=== PATIENT | male | born 1940 | race Caucasian/White ===

== ENCOUNTER 2020-07-12 08:26 | Outpatient (CLI) | payer MEDICARE, SELFPAY ==
--- NOTE | ~2020-07-12 | CT_ITS ---
EXAMINATION: CT abdomen pelvis w con EXAM DATE: 07/12/2020 09:00 INDICATION: Prostate cancer. TECHNIQUE: Spiral CT of the abdomen and pelvis was performed following intravenous injection of 100 m L Omnipaque 350. Axial, coronal and sagittal images of the abdomen and pelvis were reviewed. The do se-length product (DLP) for this examination was 592.75 mGy-cm. The exposure was tailored according to patient size (auto mA exposure control), and iterative reconstruction (ASIR) was used as additiona l dose reduction technique. Comparison is made to prior examination from 01/20/2018. FINDINGS: There is a pancreatic tail cystic mass measuring 2 cm, may have small septations, microcyst ic morphology. The differential diagnosis includes pseudocyst, intraductal papillary mucinous neoplas m (IPMN), mucinous cystic neoplasm (MCN), and the less common serous cystadenoma and neuroendocrine t umor. Correlate for history of pancreatitis. Difficult to specifically confirm this on prior study d ue to lack of contrast, but probably either stable or decreased in size compared to that examination, 1.5 years stability. Follow-up CT abdomen with contrast recommended in 6-12 months. The liver, spleen, adrenal glands are unremarkable. There are cholecystectomy clips. Portal and spl enic veins are patent. Kidneys enhance symmetrically. There is no hydronephrosis. Punctate left nep hrolithiasis. Small regions of right renal cortical scarring. There is severe prostatomegaly, measur ing over 7 cm in diameter. Some diffuse bladder wall thickening, could indicate chronic cystitis. Ac pia cystitis not excludable. There is no retroperitoneal or pelvic lymphadenopathy. The appendix is not positively visualized. There is no pericecal inflammatory change to suggest appe ndicitis. There is moderate sigmoid colonic diverticulosis. There is no adjacent inflammatory change to suggest diverticulitis. There is small sliding gastroesophageal hiatal hernia. There is expecte d amount of colonic stool. No free intraperitoneal gas. The heart is normal in size. There are n o pericardial or pleural effusions. The lung bases are unremarkable. There are 2 focal lucent intramedullary regions in the right iliac bone at the level of the acetabulu m, measuring about 2 cm each, without cortical destruction. 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 Prostate cancer would be expected to produce osteoblastic metastatic disease. These can be reevaluated on a 6 month follow-up CT. IMPRESSION: 1. Incidental pancreatic cystic lesion likely demonstrating 1.5 years stability. Follow-up CT abdome n with contrast in 6-12 months. 2. Severe prostatomegaly. No lymphadenopathy. 3. 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 Patient has bone scan also being performed today. 4. Punctate left nephrolithiasis. 5. Moderate sigmoid diverticulosis. Reviewed, dictated and finalized at location A. IMPRESSION: 1. Incidental pancreatic cystic lesion likely demonstrating 1.5 years stabilit y. Follow-up CT abdomen with contrast in 6-12 months. 2. Severe prostatomegaly. No lymphadenopathy. 3. 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 Patient has bone scan also being performed today. 4. Punctate left nephrolithiasis. 5. Moderate sigmoid diverticulosis.
--- NOTE | ~2020-07-12 | NM_ITS ---
EXAMINATION: NM bone scan whole body EXAM DATE: 07/12/2020 12:22 INDICATION: Prostate cancer. TECHNIQUE: Bone scan was performed after injection of25 mCi technetium 99 HDP and planar whole body images were obtained. COMPARISON: CT abdomen pelvis same date FINDINGS: Physiologic activity within kidneys and excretion to the bladder. Physiologic expected sof t tissue and bone activity. There are focal regions of mild periarticular increased activity consiste nt with osteoarthritis. There is increased activity in the right acetabulum compared to the contralateral hip, where 2 lucent regions were described on CT. 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 This asymmetric activity is most likely related to the asymmetric osteoarthr itis. Osteolytic metastatic disease often does not have increased activity on bone scan. These region s on CT can be reevaluated on a follow-up abdomen pelvis CT. IMPRESSION: 1. Asymmetric acetabular activity likely due to asymmetric osteoarthritis. 2. No osteoblastic disease suspected. Reviewed, dictated and finalized at location A.
[2020-07-12 08:56] LABS: Estimated Glomerular Filt Rate 42
== END 2020-07-12 08:27 | disposition home or self-care (01) ==
PROVIDERS: PCP Urology; Visit Provider Urology
DX: C61 Malignant neoplasm of prostate (principal); N20.0 Calculus of kidney; K57.30 Diverticulosis of large intestine without perforation or abscess without bleeding
CPT/HCPCS: 74177; 78306; A9561; Q9967

== ENCOUNTER 2020-10-07 10:43 | Outpatient (CLI) | payer MEDICARE, SELFPAY ==
--- NOTE | ~2020-10-07 | MR_ITS ---
EXAMINATION: MR pelvis wo/w con DATE: 10/07/2020 12:24 INDICATION: TECHNIQUE: Magnetic resonance imaging (MRI) of the pelvis was performed without and with 15 mL Multih ance intravenous contrast. Fullfield sequences of the pelvis included axial and coronal T2-weighted SS FSE, axial and coronal 2D FIESTA, axial SSFSE-IR TALITA, axial dual-echo T1-weighted FSPGR, axial and coronal T1 weighted LAVA, axial STIR, axial diffusion-weighted SE with apparent diffusion coefficie nt (ADC) maps. Postcontrast coronal T1-weighted LAVA and time course of axial T1-weighted LAVA with fullfield of view of the pelvis was also obtained. COMPARISON: None. FINDINGS: Prostatomegaly measuring 6.9 x 5.3 x 7.0 cm. The prostate demonstrates lobular pattern of heterogeneo us enhancement. There is also a lobular cephalad margin of the prostate which impresses upon the base of the otherwise normal-appearing bladder. The remainder of the prosthetic margin appears smooth. Th ere is a T2 hyperintense nonenhancing region positioned between the prostate and the anterior wall of the rectum which could represent either hematoma related to a prostate biopsy or more likely a hydro gel injection for rectal separation from the prostate prior to radiation treatment. This region measu res 5.1 cm medial collateral, 3.5 cm craniocaudally and from 8 mm in thickness centrally and on the l eft and up to 11 mm on the right. The bilateral atrophic seminal vesicles also lie anterior to the hy drogel spacer. No pathologically enlarged pelvic or inguinal lymphadenopathy. The visualized portions of the bowels including the appendix are normal. Mild to moderate lumbar spondylosis. Mild left and moderate to severe right hip osteoarthritis. The lytic lesion at the posterior right acetabulum demon strates prominent increased T2 signal with mild peripheral enhancement and would favor a synovial Degenerative subchondral cyst over metastatic disease. IMPRESSION: 1. Prostatomegaly measuring 6.9 x 5.3 x 7.0 cm with lobular cephalad margin but no evident extraprost atic extension of reported prostate cancer. 2. Small fluid attenuation collection situated between the prostate and the rectum most likely repres enting a hydrogel spacer with differential including postbiopsy hematoma. 3. 2.1 x 1.9 cm T2 hyperintense lesion with peripheral enhancement at the posterior right acetabulum and would favor degenerative subchondral cyst related to severe osteoarthritis over metastatic diseas e. No pathologically enlarged lymphadenopathy or other bone lesions to suggest any additional metasta tic disease. Reviewed, dictated and finalized at location A. IMPRESSION: 1. Prostatomegaly measuring 6.9 x 5.3 x 7.0 cm with lobular cephalad margin but no evident extraprostatic extension of reported prostate cancer. 2. Small fluid attenuation collection situated between the prostate and the rec nina most likely representing a hydrogel spacer with differential including post biopsy hematoma. 3. 2.1 x 1.9 cm T2 hyperintense lesion with peripheral enhancement at the poste rior right acetabulum and would favor degenerative subchondral cyst related to severe osteoarthritis over metastatic disease. No pathologically enlarged lymph adenopathy or other bone lesions to suggest any additional metastatic disease.
[2020-10-07 11:15] LABS: Estimated Glomerular Filt Rate 49
== END 2020-10-07 10:44 | disposition home or self-care (01) ==
LOC: ANHIMG 10:45
PROVIDERS: Visit Provider Radiology Radiation Oncology
DX: C61 Malignant neoplasm of prostate (principal)
CPT/HCPCS: 72197; A9577

== ENCOUNTER 2022-12-30 22:07 | Emergency (ER) | payer MEDICARE, SELFPAY ==
[2022-12-30 22:08] VITALS: BP 149/83; PULSE 95; RESP 18; TEMP 36.7; O2SAT 98
[2022-12-31 02:03] VITALS: BP 146/84; PULSE 65; RESP 16; TEMP 36.7; O2SAT 97
--- NOTE | 2022-12-31 02:30 | ED.GENADULT ---
HPI - General Adult General Chief complaint: Skin/Abscess/Foreign Body Stated complaint: L ankle wound- bite? Time Seen by Provider: 12/31/22 02:23 Source: patient Mode of arrival: ambulatory Limitations: no limitations History of Present Illness HPI narrative: This is a 82-year-old male who presents to the ED with chief complaint of left ankle wound starting 3 days ago and worse today. Reports 2 blisters to the area. He is unsure of what caused this but was gardening when this first started. He thinks he may have been bitten by a bug. Denies seeing any ticks. Reports that the wound may be bigger. She has been minimally painful. He does note that there is increased swelling to the ankle. Denies any numbness, weakness, further site of pain or injury. Denies fevers, chills, nausea, vomiting. Related Data Allergies Allergy/AdvReac Type Severity Reaction Status Date / Time No Known Allergies Allergy Verified 05/26/15 10:37 Review of Systems Review of Systems: All systems as dictated in HPI Exam Narrative: GENERAL: Well-appearing, well-nourished, and in no acute distress. HEAD: Normocephalic, atraumatic. EYES: PERRLA and EOMI. ENT: Nares clear, no rhinorrhea or epistaxis. Mucous membranes moist. Oropharynx without tonsillar hypertrophy exudate or other lesions. NECK: Supple. No adenopathy or masses. CHEST: No respiratory distress. Clear to auscultation. No wheezes rales or rhonchi HEART: Regular rate and rhythm. No murmur heard. Normal peripheral pulses. ABDOMEN: Soft, nontender, nondistended, normal active bowel sounds. MSK: Left ankle mild edema noted. Tenderness. No warmth to the ankle joint. Full range of motion of the ankle. SKIN: There is a 5 x 3 cm area of erythema and edema to the left ankle. Blisterlike lesions. Tenderness. No purulence. No streaking. NEURO: Alert and oriented x3. No focal deficits. PSYCH: Normal mood and affect. Course Vital Signs Vital signs: Vital Signs Temperature 98.1 F 12/30/22 22:08 Pulse Rate 95 12/30/22 22:08 Respiratory Rate 18 12/30/22 22:08 Blood Pressure 149/83 H 12/30/22 22:08 Pulse Oximetry 98 12/30/22 22:08 Oxygen Delivery Room Air 12/30/22 22:08 Temperature 98.1 F 12/31/22 02:03 Pulse Rate 65 12/31/22 02:03 Respiratory Rate 16 12/31/22 02:03 Blood Pressure 146/84 H 12/31/22 02:03 Pulse Oximetry 97 12/31/22 02:03 Oxygen Delivery Room Air 12/30/22 22:08 Medical Decision Making MDM Narrative Medical decision making narrative: This is a 82-year-old male who presents to the ED with chief complaint of left medial ankle rash. Vitals are normal. Exam consistent with cellulitis. He will be given first dose of antibiotics here. He has no systemic symptoms. No evidence of any septic joint. Prescription for Keflex given. Instructed to follow-up with PCP. Pt will be discharged in stable condition. Return precautions given and supportive measures discussed. Pt is understanding and agreeable with plan for discharge and follow-up with PCP. Vital Signs Vital Signs: Vital Signs Temperature 98.1 F 12/30/22 22:08 Pulse Rate 95 12/30/22 22:08 Respiratory Rate 18 12/30/22 22:08 Blood Pressure 149/83 H 12/30/22 22:08 Pulse Oximetry 98 12/30/22 22:08 Oxygen Delivery Room Air 12/30/22 22:08 Temperature 98.1 F 12/31/22 02:03 Pulse Rate 65 12/31/22 02:03 Respiratory Rate 16 12/31/22 02:03 Blood Pressure 146/84 H 12/31/22 02:03 Pulse Oximetry 97 12/31/22 02:03 Oxygen Delivery Room Air 12/30/22 22:08 Discharge Plan Discharge Clinical Impression: Cellulitis Patient Disposition: Home, Self-Care Condition: Stable Instructions: Antibiotic Form Additional Instructions: Your exam is consistent with an infection of the skin. Please take antibiotics through full course. If the area continues to be itchy, use Benadryl. Follow-up with your primary care doctor this
[2022-12-31] MEDS: CEPHALEXIN 500 MG CAPSULE PO (02:47)
== END 2022-12-31 03:09 | disposition home or self-care (01) ==
PROVIDERS: Emergency Provider Physician Assistant
DX: L03.116 Cellulitis of left lower limb (principal)
CPT/HCPCS: 99283; A9270

== ENCOUNTER 2023-09-30 12:33 | Emergency (ER) | payer MEDICARE, SELFPAY ==
[2023-09-30 12:34] VITALS: BP 152/85; PULSE 97; RESP 18; TEMP 36.5; O2SAT 97
--- NOTE | 2023-09-30 12:58 | ED_ITS ---
HPI - Skin/Abscess/Foreign Bdy General Chief complaint: Skin/Abscess/Foreign Body Stated complaint: cellulitis to LEFT arm History of Present Illness HPI narrative: Male presents the emergency room for evaluation of redness, swelling, pain and streaking in his left arm. Patient states 2 days ago he was out in the yd where he was stung by multiple insects. He is was advised to come to the emergency room for concerns over cellulitis. Patient denies fever. Denies pain. Patient has not taken any antihistamines. States his gave a of 4 doses of antibiotics. Related Data Allergies Allergy/AdvReac Type Severity Reaction Status Date / Time No Known Allergies Allergy Verified 05/26/15 10:37 Review of Systems Review of Systems: ROS unremarkable except for noted in HPI Exam Narrative: GENERAL: Well-appearing, well-nourished, no physical limitations, and in no acute distress. HEAD: Normocephalic, atraumatic. EYES: Conjunctivae normal, PERRLA and EOMI. CHEST: Clear to auscultation. No respiratory distress. No wheezes rales or rhonchi. HEART: Regular rate and rhythm. No murmur heard. Normal peripheral pulses. EXTREMITIES: Normal range of motion. No edema. No clubbing or cyanosis SKIN: Left arm: Area of erythema to the left forearm extending into the left biceps. Noted streaking into the left antecubital. Skin is warm to the touch. NEURO: No focal deficits. Alert and oriented x3. MAEW. CN's II-XI intact bila terally, normal gait PSYCH: Cooperative. Normal mood and affect. Course Vital Signs Vital signs: Vital Signs Temperature 36.5 C 09/30/23 12:34 Pulse Rate 97 09/30/23 12:34 Respiratory Rate 18 09/30/23 12:34 Blood Pressure 152/85 H 09/30/23 12:34 Pulse Oximetry 97 09/30/23 12:34 Oxygen Delivery Room Air 09/30/23 12:34 Temperature 36.5 C 09/30/23 12:34 Pulse Rate 97 09/30/23 12:34 Respiratory Rate 18 09/30/23 12:34 Blood Pressure 152/85 H 09/30/23 12:34 Pulse Oximetry 97 09/30/23 12:34 Oxygen Delivery Room Air 09/30/23 12:34 MDM - Skin/Abscess/Foreign Bdy MDM Narrative Medical decision making narrative: 83-year-old male presented with swelling, redness, itching to left forearm fol lowing multiple insect bites. Likely allergic reaction with some odontogenic spread. Encourage patient to take a daily antihistamine. We will give him a low dose of steroids. The patient's is likely allergic reaction to the insect bites and not infectious. We will send a 7 day course of Keflex in the event that antihistamines and steroids to improve his symptoms. Discharge Plan Discharge Clinical Impression: Allergic reaction, Insect bite Patient Disposition: Home, Self-Care Condition: Stable Instructions: Antibiotic Form Prescriptions: New cephalexin 500 mg capsule 500 mg PO Q12H Qty: 14 0RF prednisone 20 mg tablet 20 mg PO DAILY Qty: 5 0RF No Action cephalexin 500 mg capsule 500 mg PO Q8H 7 Days Qty: 21 0RF Follow-up/Referrals: PHYSICIAN NOT ON STAFF,NONSTAFF [Primary Care Provider] - Time of Disposition: 13:01
== END 2023-09-30 13:12 | disposition home or self-care (01) ==
LOC: ANHED 13:04
PROVIDERS: Emergency Provider Nurse Practitioner Family
DX: S50.862A Insect bite (nonvenomous) of left forearm, initial encounter (principal); S40.862A Insect bite (nonvenomous) of left upper arm, initial encounter; W57.XXXA Bitten or stung by nonvenomous insect and other nonvenomous arthropods, initial encounter
CPT/HCPCS: 99283

== ENCOUNTER 2024-10-13 11:26 | Emergency (ER) | payer MEDICARE, SELFPAY ==
--- OUTSIDE RECORDS SUMMARY | 2024-10-13 11:29 | XMS_ITS | Encounter Summary ---
Author Organization [employer] Address 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
--- OUTSIDE RECORDS SUMMARY | 2024-10-13 11:29 | XMS_ITS | Encounter Summary ---
Author Organization [email or web address] Address 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
--- OUTSIDE RECORDS SUMMARY | 2024-10-13 11:29 | XMS_ITS | Encounter Summary ---
Author Organization [employer] Address 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
--- OUTSIDE RECORDS SUMMARY | 2024-10-13 11:29 | XMS_ITS | Encounter Summary ---
Author Organization [employer] Address 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
--- OUTSIDE RECORDS SUMMARY | 2024-10-13 11:29 | XMS_ITS | Continuity of Care Document ---
Author Organization [facility] Address [address] [place] [address] [address] [place] [address] Phone Care Team Providers Care Display Designer Name Role Phone Gutierrez OD, Frantz Unavailable Unavailable Procedures Procedure Date Eye Exam & Treatment Refraction Eye Exam Established Pt Advance Directives Directive Yes / No Effective Date File Name No Information Encounters Encounter Description Practice Location Reason(s) For Visit Diagnoses Date Provider Providers Copied on Encounter [facility], [address] [place] [address] [address], [place], [place], [id number], [place] tel:[phone] [facility] No Information 2-201 0 Gutierrez OD Frantz. [address] , [address], [place], [address], [place]. tel:[phone] [facility], [address] [place] [address] [address], [place], [place], [id number], tel:[phone] [facility] No Information 5-201 0 Gutierrez OD Frantz. [address] , [address], [place], [address], [place]. tel:[phone] Family History Family Member Type Diagnosis Age At Onset No Information Payers Payer name Insurance type Covered libertarian ID Authoriza tion(s) Medicare [facility] [id number] [facility] Medicare Supp CI [id number] Social History Type Description Quantity Date Captured Comments Sex Male Smoking Status No Information Chief Complaint And Reason For Visit No Information Reason For Referral Reason For Referral No Information History Of Present Illness Encounter Date Complaint History Of Prese nt Illness No Information Functional Status Date Functional Assessmen t No Information Instructions Date Instruction Additional Infor mation No Information Assessments Type Assessment Date No Information Patient Care Teams Name Effective Dates (start - stop) Status Members No Information
--- OUTSIDE RECORDS SUMMARY | 2024-10-13 11:29 | XMS_ITS | Encounter Summary ---
Author Organization [email or web address] Address 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
--- OUTSIDE RECORDS SUMMARY | 2024-10-13 11:29 | XMS_ITS | Encounter Summary ---
Author Organization [employer] Address 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
--- OUTSIDE RECORDS SUMMARY | 2024-10-13 11:29 | XMS_ITS | Clinical Summary ---
Author Organization [facility] Address [address] [place] [address] Phone Care Team Providers Care Waiter/Waitress Second Class Name Role Phone Kirill Mendoza MD Primary Care Provider [phone] Allergies No known active allergies Medications SIMVASTATIN ORAL Take by mouth. Active FENOFIBRATE ORAL Take by mouth. Active LEVOTHYROXINE SODIUM (LEVOTHYROXINE ORAL) Take by mouth. Active VITAMIN B COMPLEX ORAL Take by mouth. Active ERGOCALCIFEROL, VITAMIN D2, (VITAMIN D ORAL) Take by mouth. Active metoprolol tartrate (LOPRESSOR) 50 mg tablet Take 50 mg by mouth daily. 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 Gender Identity Not on file Sexual Orientation Not on file Last Filed Vital Signs Vital Sign Reading Time Taken Comments Blood Pressure 116/71 08/12/2017 8:15 AM CDT Pulse 75 08/12/2017 8:15 AM CDT Temperature 37 C (98.6 F) 08/12/2017 8:15 AM CDT Respiratory Rate 13 08/12/2017 8:15 AM CDT Oxygen Saturation 99% 08/12/2017 8:05 AM CDT Inhaled Oxygen Concentration - - Weight 85.5 kg (188 lb 6.4 oz) 08/12/2017 7:23 A M CDT Height 175.3 cm (5' 9) 08/12/2017 7:23 AM CDT Body Mass Index 27.82 08/12/2017 7:23 AM CDT Plan of Treatment Health Maintenance Due Date Last Done Comments DTAP/TDAP/TD VACCINES (1 - Tdap) 1961 PNEUMOCOCCAL VACCINE 50+ YEA RS (1 of 1 - PCV) 1992 ZOSTER VACCINE (1 of 2) 1992 RSV VACCINE (60+ or ) (1 - 1-dose 75+ series) 2017 COLORECTAL SCREENING 08/12/2022 08/12/2017, 08/12/2017, 08/11/2012, Additional history exists INFLUENZA VACCINE (#1) 2024 Procedures Procedure Name Priority Date/Time Associated Diagnosis Comments COLONOSCOPY REPORT 08/12/2017 8: 08 AM CDT from Last 3 Months or Most Recently Relevant to Health Maintenance Results * COLONOSCOPY REPORT (08/12/2017 8:08 AM CDT) Narrative Procedure Note Live Larson MD - 08/12/2017 8:08 AM CDT [facility] Endoscopy Patient Name: Selvin Brandt Procedure Date: 08/12/2017 Date of : 1940 Admit Type: Outpatient Age: 77 Attending MD: Live Larson MD Procedure: Colonoscopy Indications: Surveillance: Personal history of adenomatous polyps on last colonoscopy 5 years ago Providers: Live Larson MD Referring MD: Kirill Mendoza Medicines: Propofol per Anesthesia Procedure: Informed consent was obtained for the procedure, including moderate sedation after risks were discussed. Based on the pre-procedure assessment, including review of the patient's medical history, medications, allergies, and review of systems, the patient was deemed to be an appropriate candidate for sedation. A timeout was performed. Continuous ECG monitoring, pulse oximetry, blood pressure monitoring, and direct observation were performed. The Colonoscope was introduced through the anus and advanced to the terminal ileum. The colonoscopy was performed without difficulty. The patient tolerated the procedure well. The quality of the bowel preparation was excellent. Upon careful withdrawl of the instrument, the following findings were noted. Estimated Blood Loss: Estimated blood loss: none. Findings: Multiple small and large-mouthed diverticula were found in the sigmoid colon and descending colon. Internal hemorrhoids were found during retroflexion. The hemorrhoids were moderate. The exam was otherwise without abnormality. Complications: No immediate complications. Impression: - Diverticulosis in the sigmoid colon and in the descending colon. - Internal hemorrhoids. - The examination was otherwise normal. - No specimens collected. Recommendation: - High fiber diet. - Follow up H. pylori test. Live Larson MD 08/12/2017 8:08:02 AM This report has been signed electronically. Number of Addenda: 0 [address] [id number] Live Larson MD GI PROCEDURE ORDERABLES Danyelle l Result from Last 3 Months or Most Recently Relevant to Health Maintenance Insurance MEDICARE PART A AND B [facility] [id number] Advance Directives For more information, please contact: [phone] * Full Code (Latest Code Status on File) Date Activated Date Inactivated Comments 08/12/2017 7:09 AM 08/12/2017 10:38 AM Care Teams Waiter/Waitress Second Class Relationship Specialty Start Date End Date Kirill Mendoza MD PCP - General 03/01/15
--- OUTSIDE RECORDS SUMMARY | 2024-10-13 11:29 | XMS_ITS | Encounter Summary ---
Author Organization [facility] Address 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
--- OUTSIDE RECORDS SUMMARY | 2024-10-13 11:29 | XMS_ITS | Encounter Summary ---
Author Organization [facility] Address 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
--- OUTSIDE RECORDS SUMMARY | 2024-10-13 11:29 | XMS_ITS | Encounter Summary ---
Author Organization [facility] Address 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
--- OUTSIDE RECORDS SUMMARY | 2024-10-13 11:29 | XMS_ITS | Clinical Summary ---
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 Gender Identity Not on file Sexual Orientation Not on file Plan of Treatment Health Maintenance Due Date Last Done Comments DTaP, Tdap and Td Vaccines ( 1 - Tdap) 1961 Annual Medicare Wellness Visit 06/13/2007 RSV Immunization or 60+ Years (1 - 1-dose 75+ series) 2017 Pneumococcal Vaccine: 50+ Years (2 of 2 - PPSV23) 12/02/2017 12/02/2016 COVID-19 Vaccine (2023-2 5 season) 2023 05/16/2020, 04/18/2020 Zoster Vaccines Completed 05/13/2018, 10/11/2017 Meningococcal B Vaccine Aged Out No l onger eligible based on patient's age to complete this topic Meningococcal Vaccine Aged Out No kameron rolf eligible based on patient's age to complete this topic RSV Immunizations Under 20 Months Aged Out No longer eligible b ased on patient's age to complete this topic Insurance MEDICARE AARP Care Teams Volunteer Services Specialist Relationship Specialty Start Date End Date Kirill Mendoza MD ANSHUL RENEE [address] [id number] PCP - General GERIATRICS 05/29/20
--- OUTSIDE RECORDS SUMMARY | 2024-10-13 11:29 | XMS_ITS | Encounter Summary ---
Author Organization [facility] Address 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
--- OUTSIDE RECORDS SUMMARY | 2024-10-13 11:29 | XMS_ITS | Encounter Summary ---
Author Organization [facility] Address 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
[2024-10-13 11:31] VITALS: BP 134/71; PULSE 76; RESP 14; TEMP 36.7; O2SAT 98
--- OUTSIDE RECORDS SUMMARY | 2024-10-13 11:46 | XMS_ITS | Continuity of Care Document ---
Author Organization [facility] Address [address] [place] [address] [address] [place] [address] Phone Care Team Providers Care Fertilizer Mixer Name Role Phone Gutierrez OD, Frantz Unavailable Unavailable Procedures Procedure Date Eye Exam & Treatment Refraction Eye Exam Established Pt Advance Directives Directive Yes / No Effective Date File Name No Information Encounters Encounter Description Practice Location Reason(s) For Visit Diagnoses Date Provider Providers Copied on Encounter [facility], [address] [place] [address] [address], [place], [place], [id number], [place] tel:[phone] [facility] [place] No Information 2-201 0 Gutierrez OD Frantz. [address] [facility] [place] , [address], [place], [address], [place]. tel:[phone] [facility], [address] [place] [address] [address], [place], [place], [id number], tel:[phone] [facility] [place] No Information 5-201 0 Gutierrez OD Frantz. [address] [facility] [place] , [address], [place], [address], [place]. tel:[phone] Family History Family Member Type Diagnosis Age At Onset No Information Payers Payer name Insurance type Covered libertarian ID Authoriza tion(s) Medicare [facility] [id number] [facility] Medicare Supp [place] [id number] Social History Type Description Quantity Date Captured [...]
--- NOTE | 2024-10-13 12:59 | ED.GENADULT ---
HPI - General Adult General Chief complaint: Skin/Abscess/Foreign Body Stated complaint: bug bites Time Seen by Provider: 10/13/24 11:40 History of Present Illness HPI narrative: 84-year-old male presents to the emergency department for evaluation of allergic reaction/cellulitis to his lower extremities. Patient was mowing his yd yesterday and noticed the reaction today. Patient does have prior history of this reaction last year. Related Data Allergies Allergy/AdvReac Type Severity Reaction Status Date / Time No Known Allergies Allergy Verified 10/13/24 11:45 Review of Systems Review of Systems: All systems reviewed & are unremarkable except as noted in HPI and below Exam Narrative: APPEARANCE: Well appearing, no pain, no distress, well-nourished. HEAD: normocephalic, atraumatic. EYES: PERRLA/EOMI, conjunctivae clear. NOSE: Normal no drainage EARS:TMS clear with good light reflex. THROAT: Pharynx clear, no exudate. NECK: Supple. No adenopathy, no masses. RESPIRATORY: Airway patent, respirations nonlabored. Clear to auscultation bilaterally, no rales, rhonchi, wheezing. CARDIOVASCULAR: Regular rate and rhythm without murmurs rubs or gallops. ABDOMINAL: Soft, nontender, nondistended, normal bowel sounds MUSCULOSKELETAL: Moves all extremities. Strength/ROM intact, No edema, No calf tenderness. NEURO: Alert. Cranial nerves II through XII intact. Good gait. Good coordination SKIN: Erythema and blisters to lower extremities Course Vital Signs Vital signs: Vital Signs Temperature 98.1 F 10/13/24 11:31 Pulse Rate 76 10/13/24 11:31 Respiratory Rate 14 10/13/24 11:31 Blood Pressure 134/71 10/13/24 11:31 Pulse Oximetry 98 10/13/24 11:31 Oxygen Delivery Room Air 10/13/24 11:31 Temperature 98.0 F 10/13/24 13:28 Pulse Rate 64 10/13/24 13:28 Respiratory Rate 17 10/13/24 13:28 Blood Pressure 123/68 10/13/24 13:28 Pulse Oximetry 100 10/13/24 13:28 Oxygen Delivery Room Air 10/13/24 11:31 Medical Decision Making [facility] Narrative Medical decision making narrative: 84-year-old male presents to the emergency department for evaluation for allergic reaction to the lower extremities. Patient was started on Keflex and prednisone emergency department. Differential Diagnosis Differential Diagnosis: Cellulitis, allergic reaction, dermatitis, poison jennifer Vital Signs Vital Signs: Vital Signs Temperature 98.1 F 10/13/24 11:31 Pulse Rate 76 10/13/24 11:31 Respiratory Rate 14 10/13/24 11:31 Blood Pressure 134/71 10/13/24 11:31 Pulse Oximetry 98 10/13/24 11:31 Oxygen Delivery Room Air 10/13/24 11:31 Temperature 98.0 F 10/13/24 13:28 Pulse Rate 64 10/13/24 13:28 Respiratory Rate 17 10/13/24 13:28 Blood Pressure 123/68 10/13/24 13:28 Pulse Oximetry 100 10/13/24 13:28 Oxygen Delivery Room Air 10/13/24 11:31 Discharge Plan Discharge Clinical Impression: Cellulitis, Allergic reaction Patient Disposition: Home Condition: Stable Instructions: Antibiotic Form, Cellulitis (ED), Insect Bite or Sting (ED), General Allergic Reaction (ED) Additional Instructions: Antibiotic as directed until completed. Prednisone as directed until completed. Have close follow-up with your primary care physician. Wound care as directed. if you have any worsening symptoms then please call or return to the emergency department. Patient Language: Macedonian Prescriptions: New cephalexin 500 mg capsule 500 mg PO Q12H 7 Days Qty: 14 0RF prednisone 50 mg tablet 50 mg PO DAILY 5 Days Qty: 5 0RF Discontinued cephalexin 500 mg capsule 500 mg PO Q8H 7 Days Qty: 21 0RF cephalexin 500 mg capsule 500 mg PO Q12H Qty: 14 0RF prednisone 20 mg tablet 20 mg PO DAILY Qty: 5 0RF Follow-up/Referrals: UNKNOWN,DOCTOR [Primary Care Provider] -
[2024-10-13] MEDS: CEPHALEXIN 500 MG CAPSULE PO (13:24)
[2024-10-13 13:28] VITALS: BP 123/68; PULSE 64; RESP 17; TEMP 36.7; O2SAT 100
== END 2024-10-13 13:29 | disposition home or self-care (01) ==
PROVIDERS: Emergency Provider Emergency Medicine
DX: L03.116 Cellulitis of left lower limb (principal); L03.115 Cellulitis of right lower limb; T78.40XA Allergy, unspecified, initial encounter; X58.XXXA Exposure to other specified factors, initial encounter
CPT/HCPCS: 99283; A9270; J7512